=== PATIENT | male | born 1960 | race Caucasian/White ===

== ENCOUNTER 2024-01-10 15:57 | Emergency (ER) | payer BC ==
[~2024-01-10] VITALS: Ht 185.4 cm; Wt 127.0 kg
[2024-01-10 16:01] VITALS: BP 0/0; PULSE 0; RESP 0; O2SAT 16
== END 2024-01-10 20:21 ==
LOC: EDH 15:57
DX: I46.9 Cardiac arrest, cause unspecified (principal)
CPT/HCPCS: 92950